=== PATIENT | female | born 1980 | race Caucasian/White ===

== ENCOUNTER 2021-11-22 10:14 | Emergency (ER) | payer SELFPAY ==
[~2021-11-22] VITALS: Ht 170.2 cm; Wt 96.5 kg
[2021-11-22 10:16] VITALS: BP 139/71
[2021-11-22] MEDS ORDERED: ACET325C5 PO (10:54)
== END 2021-11-22 15:04 | disposition left against medical advice (07) ==
LOC: M ED 10:14
DX: Z53.21 Procedure and treatment not carried out due to patient leaving prior to being seen by health care provider (principal)

== ENCOUNTER 2021-12-26 20:28 | Emergency (ER) | payer SELFPAY ==
[~2021-12-26] VITALS: Ht 170.2 cm; Wt 97.3 kg
[~2021-12-26 20:28] MED LIST: ACET325C5 PO
[2021-12-26] MEDS ORDERED: ACETAMINOPHEN TAB 650MG DOSE (2X325MG) PO ONE (23:20)
[2021-12-26 23:27] VITALS: BP 143/79
== END 2021-12-26 23:53 | disposition home or self-care (01) ==
LOC: M ED 20:28
DX: S09.90XA Unspecified injury of head, initial encounter (principal); S02.2XXA Fracture of nasal bones, initial encounter for closed fracture; S00.03XA Contusion of scalp, initial encounter; T14.8XXA Other injury of unspecified body region, initial encounter; Y04.8XXA Assault by other bodily force, initial encounter; I10 Essential (primary) hypertension; F17.200 Nicotine dependence, unspecified, uncomplicated